=== PATIENT | male | born 1995 | race Caucasian/White ===

== ENCOUNTER 2023-09-10 19:00 | Observation (INO) | payer BC ==
--- OUTSIDE RECORDS SUMMARY | 2023-09-10 19:02 | XMS REPORT | Continuity of Care Document ---
Author Name Unknown Address [address] [facility] [address] th[address] Address [address] [facility] 1 [address] [place] [address] Care Team Providers Care Converting Supervisor Name Role Phone NIRALI ELI Attending Clinician Unavailable Lab, Gilda Fam Harlanb I Attending Clinician Unavailab Nirali Doran Attending Clinician [phone] Doctor Unassigned, [place] Attending Clinician U navailable Allergies, Adverse Reactions, Alerts Allergy Name Allergy Type Status Severity Reaction(s) Onset Date Inactive Date Treating Clinician Comments Source NO KNOWN ALLERGIE S Drug Class Active [facility] Social History Social Habit Start Date Stop Date Quantity Comments Source Sex Assigned At [facility] Exposure to SARS-CoV-2 (event) Not sure [facility] Smoking Status Start Date Stop Date Source Unknown if ever smoked [facility] Encounters Start Date/Time End Date/Time Encounter Type Admission Type Attending Clinicians Care Facility Care Department Encounter ID Source 2020-10-12 11:35:00 2020-10-12 11:35:00 Outpatient R NIRALI ELI [facility] [id number] [facility] 2020-10-12 11:11:30 2020-10-12 11:26:30 Licensed Sales Producer Visit Lab, Adc Fam Pob I Nirali Eli [facility] [id number] [facility] 2020-10-12 00:00:00 2020-10-12 00:00:00 Letter (Out) Doctor Unassigned, [place] [facility] [id number] [facility]
[2023-09-10] MEDS ORDERED: IBUPROFEN 200 MG TAB PO ONE (19:59)
[2023-09-10] MEDS ORDERED: IBUPROFEN 400 MG TAB ONE (19:59)
[2023-09-10 20:04] LABS: Absolute Lymphocytes (CBC) 0.9 K/uL (0.7-4.9); Hematocrit 42.5 % (39.6-49.0); MCV 87.4 fL (80-100); MPV 7.1 fL (7.6-11.3); Platelets 165 thou/uL (152-406); RBC Red Blood Cell Count 4.87 M/uL (4.33-5.43)
[2023-09-10 20:22] LABS: Potassium 3.6 mEq/L (3.5-5.1)
--- NOTE | 2023-09-10 20:24 | RAD REPORT ---
EXAM DESCRIPTION: CT - Soft Tissue Neck W/Contr CLINICAL HISTORY: r/o sloop captain;Sore throat Neck pain and swelling COMPARISON: No comparisons TECHNIQUE All CT scans are performed using dose optimization technique as appropriate and may includ e automated exposure control or mA/KV adjustment according to patient size. FINDINGS: Nasopharyngeal tissues are normal in appearance. Fossa Rosenmller are normal. Parapharyngeal fat triangles are symmetric. There is moderate enlargement of both palatine tonsils, greater on the left. Somewhat amorphous 21 mm left peritonsillar abscess suspected. Bilateral jugular chain lymphadenopathy is seen, slightly grea ter on the left likely reactive. Largest lymph node on the left measures 26 mm. The vocal cords are normal in appearance. Normal thyroid gland. Salivary glands are normal in appearance. Upper lung coles are clear. Included intracranial contents are unremarkable. IMPRESSION: 21 mm left peritonsillar abscess suspected. Moderate enlargement of both palatine tonsils seen, greater on the left. Bilateral presumably reactive jugular chain lymphadenopathy, largest measuring 26 mm on the left.
[2023-09-10] MEDS ORDERED: CLINDAMYCIN 600MG/D5W 50 ML IV ONE (20:51)
[2023-09-10] MEDS ORDERED: dexAMETHasone 10 MG/ML VIAL ONE (20:51)
[2023-09-10] MEDS ORDERED: NA CHLORIDE 0.9% 2,000 ML ONE (20:52)
--- NOTE | 2023-09-10 20:52 | ER ---
Nurse's Notes [facility] Name: Stas Powers Age: 28 yrs Sex: Male : 1995 Arrival Date: 09/10/2023 Time: 19:00 Bed 20 Private MD: Diagnosis: Peritonsillar abscess Presentation: 09/10 19:38 Chief complaint: Patient states: Sore throat and fever since Friday, seen at urgent [facility] care, given abx, had felt somewhat better but pain moved to the left side and patient is able to see pus. Coronavirus screen: Vaccine status: Patient reports being unvaccinated. Ebola Screen: Patient denies travel to an Ebola-affected area in the 21 days before illness onset. Initial Sepsis Screen: Does the patient meet any 2 criteria? HR > 90 bpm. No. Patient's initial sepsis screen is negative. Does the patient have a suspected source of infection? Yes: Other: Throat. Risk Assessment: Do you want to hurt yourself or someone else? Patient reports no desire to harm self or others. Onset of symptoms was September 08, 2023. 19:38 Method Of Arrival: Ambulatory [facility] 19:38 Acuity: KEMAR 3 [facility] Triage Assessment: 19:58 General: Appears in no apparent distress. comfortable, Behavior is calm, cooperative. cm10 Pain: Complains of pain in Throat. EENT: Throat is reddened has patchy exudate has enlarged tonsils Reports pain in Throat. Neuro: No deficits noted. Level of Consciousness is awake, alert, obeys commands, Oriented to person, place, time, situation. Cardiovascular: No deficits noted. Patient's skin is warm and dry. Respiratory: No deficits noted. Airway is patent Respiratory effort is even, unlabored, Respiratory pattern is regular, symmetrical. GI: No deficits noted. Abdomen is flat, Reports vomiting. : No deficits noted. No signs and/or symptoms were reported regarding the genitourinary system. Derm: No deficits noted. No signs and/or symptoms reported regarding the dermatologic system. Skin is intact, Skin is pink, warm \T\ dry. Musculoskeletal: No deficits noted. No signs and/or symptoms reported regarding the musculoskeletal system. Range of motion: intact in all extremities. Historical: - Allergies: 19:40 No Known Allergies; nj1 - PMHx: 19:40 None; nj1 - PSHx: 19:40 None; nj1 - Immunization history:: Client reports having NOT received the Covid vaccine. - Social history:: Smoking status: Patient denies any tobacco usage or history of. Screenin:59 [facility] ED Fall Risk Assessment (Adult) History of falling in the last 3 months, cm10 including since admission No falls in past 3 months (0 pts) Confusion or Disorientation No (0 pts) Intoxicated or Sedated No (0 pts) Impaired Gait No (0 pts) Mobility Assist Device Used No (0 pt) Altered Elimination No (0 pt) Score/Fall Risk Level 0 - 2 = Low Risk Oriented to surroundings, Maintained a safe environment, Hourly rounding (assess needs \T\ fall precautionary measures) done. Abuse screen: Denies threats or abuse. Denies injuries from another. Nutritional screening: No deficits noted. Tuberculosis screening: No symptoms or risk factors identified. Assessment: 21:00 Reassessment: No changes from previously documented assessment. Patient and/or family tl4 updated on plan of care and expected duration. Pain level reassessed. Patient is alert, oriented x 3, equal unlabored respirations, skin warm/dry/pink. GI: Reports nausea, vomiting. Vital Signs: 19:38 BP 155 / 89; Pulse 100; Resp 18; Temp 101.7(O); Pulse Ox 100% ; Weight 86.18 kg; Height nj1 6 ft. 1 in. ; Pain 5/10; 20:30 BP 140 / 83; Pulse 86; Resp 18; Pulse Ox 98% ; Pain 8/10; tl4 21:00 BP 142 / 83; Pulse 88; Resp 16; Pulse Ox 100% ; Pain 8/10; tl4 21:30 BP 137 / 90; Pulse 81; Resp 18; Pulse Ox 98% ; tl4 19:38 Body Mass Index 25.07 (86.18 kg, 185.42 cm) nj1 19:38 Pain Scale: Adult nj1 20:30 Pain Scale: Adult tl4 21:00 Pain Scale: Adult tl4 Dulac Coma Score: 21:00 Eye Response: spontaneous(4). Motor Response: obeys commands(6). Verbal Response: tl4 oriented(5). Total: 15. ED Course: 19:13 Patient arrived in ED. mg5 19:13 Jason, Zahraa, BOGGER OPERATOR-C is PHCP. kb 19:13 Tani Ha MD is Attending Physician. kb 19:40 Triage completed. nj1 19:41 Arm band placed on right wrist. nj1 19:57 Basic Metabolic Panel Sent. cm10 19:57 CBC with Diff Sent. cm10 19:57 Initial lab(s) drawn, by me, sent to lab. Inserted saline lock: 20 gauge in right cm10 antecubital area, using aseptic technique. Blood collected. 19:59 Patient has correct armband on for positive identification. Bed in low position. Call cm10 light in reach. Side rails up X 1. Provided Education on: ER process and procedures. . 20:15 CT Soft Tissue Neck W/contr In Process Unspecified. EDMS 20:51 Emmanuel Nance MD is Hospitalizing Provider. kb 20:53 Mathew Steele is Primary Nurse. tl4 23:00 No provider procedures requiring assistance completed. Patient admitted, IV remains in jw7 place. Administered Medications: 19:46 Drug: Ibuprofen PO 600 mg PO once Route: PO; nj1 21:42 Follow up: Response: No adverse reaction; Pain is unchanged, physician notified tl4 20:53 Drug: Clindamycin IVPB 600 mg IVPB once over 30 mins; (mix in 50 mL) Route: IVPB; tl4 Infused Over: 30 mins; Site: right antecubital; 21:30 Follow up: IV Status: Completed infusion; IV Intake: 50ml tl4 20:53 Drug: NS 0.9% IV 1000 ml IV at 1000 ml once Route: IV; Rate: 1000 ml; Site: right tl4 antecubital; Delivery: Primary tubing; 21:40 Follow up: Response: No adverse reaction; IV Status: Completed infusion; IV Intake: tl4 1000ml 20:54 Drug: Decadron - Dexamethasone IVP 10 mg IVP once Route: IVP; Site: right antecubital; tl4 21:42 Follow up: Response: No adverse reaction tl4 21:36 Drug: fentaNYL (PF) IVP 25 mcg IVP once Route: IVP; Infused Over: 2 mins; Site: right tl4 antecubital; 21:59 Follow up: Response: Pain is decreased tl4 21:41 Drug: NS 0.9% IV 1000 ml IV at 125 ml/hr continuous Route: IV; Rate: 125 ml/hr; Site: tl4 right antecubital; Delivery: Dial-a-flow; 23:01 Follow up: Response: No adverse reaction; IV Status: Infusion continued upon admission; jw7 IV Intake: 200ml Medication: 19:59 VIS not applicable for this client. cm10 Intake: 21:30 IV: 50ml; Total: 50ml. tl4 21:40 IV: 1000ml; Total: 1050ml. tl4 23:01 IV: 200ml; Total: 1250ml. jw7 Outcome: 20:51 Decision to Hospitalize by Provider. kb 23:00 Admitted to ER Hold. [facility] further documentation. jw7 23:00 Condition: stable 23:00 Instructed on the need for admit, Demonstrated understanding of instructions, 09/11 03:33 Patient left the ED. jw7 Signatures: Dispatcher [employer] EDZahraa Garnica FNP-C BOGGER OPERATOR-CkSavanna Giron RN RN jw7 Roshni Degroot RN RN nj1 Lisbeth Garcia RN RN cm10 Prudence Mays 5 Mathew Steele tl4
--- NOTE | 2023-09-10 20:52 | EDPHYS ---
Physician Documentation [facility] Name: Stas Powers Age: 28 yrs Sex: Male : 1995 Arrival Date: 09/10/2023 Time: 19:00 Bed 20 Private MD: ED Physician Tani Ha HPI: 09/10 19:52 This 28 yrs old Male presents to ER via Ambulatory with complaints of Vomiting, Sore kb Throat - PAIN, Fever. 19:52 Patient is a 28-year-old male who presents for sore throat and fever that started 3 kb days ago. States pain in the throat localized to the left side, went to urgent care just prior to arrival and was sent to the ER for evaluation to rule out peritonsillar abscess.. Historical: - Allergies: 19:40 No Known Allergies; nj1 - PMHx: 19:40 None; nj1 - PSHx: 19:40 None; nj1 - Immunization history:: Client reports having NOT received the Covid vaccine. - Social history:: Smoking status: Patient denies any tobacco usage or history of. ROS: 19:51 Respiratory: Negative for shortness of breath, cough, wheezing, and pleuritic chest kb pain, 19:51 Constitutional: Positive for fever, 19:51 ENT: Positive for sore throat, 19:51 All other systems are negative, Exam: 19:51 Constitutional: This is a well developed, well nourished patient who is awake, alert, kb and in no acute distress. Head/Face: Normocephalic, atraumatic. Cardiovascular: Regular rate Respiratory: Respirations even and unlabored. No increased work of breathing. Talking in full sentences Skin: Warm, dry with normal turgor. Normal color. MS/ Extremity: Pulses equal, no cyanosis. Neurovascular intact. Full, normal range of motion. Neuro: Awake and alert, GCS 15, oriented to person, place, time, and situation. Moves all extremities. Normal gait. 19:51 ENT: Posterior pharynx: Airway: normal, Tonsils: enlarged on the left, with erythema, with exudate, swelling, that is mild, erythema, that is moderate, exudate, that is moderate, peritonsillar mass, is noted on left, Vital Signs: 19:38 BP 155 / 89; Pulse 100; Resp 18; Temp 101.7(O); Pulse Ox 100% ; Weight 86.18 kg; Height nj1 6 ft. 1 in. ; Pain 5/10; 20:30 BP 140 / 83; Pulse 86; Resp 18; Pulse Ox 98% ; Pain 8/10; tl4 21:00 BP 142 / 83; Pulse 88; Resp 16; Pulse Ox 100% ; Pain 8/10; tl4 21:30 BP 137 / 90; Pulse 81; Resp 18; Pulse Ox 98% ; tl4 19:38 Body Mass Index 25.07 (86.18 kg, 185.42 cm) nj1 19:38 Pain Scale: Adult nj1 20:30 Pain Scale: Adult tl4 21:00 Pain Scale: Adult tl4 Christopher Coma Score: 21:00 Eye Response: spontaneous(4). Motor Response: obeys commands(6). Verbal Response: tl4 oriented(5). Total: 15. MDM: 19:14 Patient medically screened. kb 19:43 External Records Reviewed: Outpatient labs: covid, flu and strep results from [facility] reviewed and negative. 19:51 Differential diagnosis: strep, bell captain, pharyngitis. Data reviewed: vital signs, nurses kb notes. 20:50 Consideration of Admission/Observation Patient was admitted/placed on observation. kb Escalation of care including admission/observation considered. Management of patient was discussed with the following: Hospitalist: Dr Nance accepts pt for admission. Olive Grader: Dr Tran accepts pt for consult. Will see in AM. Counseling: I had a detailed discussion with the patient and/or guardian regarding the historical points, exam findings, and any diagnostic results supporting the discharge/admit diagnosis, lab results, radiology results, the need for further work-up and treatment in the hospital. 09/10 19:29 Order name: CBC with Diff; Complete Time: 21:07 kb 09/10 19:29 Order name: Basic Metabolic Panel; Complete Time: 20:23 kb 09/10 20:59 Order name: CBC Smear Scan; Complete Time: 21:07 EDMS 09/10 21:04 Order name: Basic Metabolic Panel EDMS 09/10 21:04 Order name: Basic Metabolic Panel EDMS 09/10 21:04 Order name: CBC with Automated Diff EDMS 09/10 21:04 Order name: CBC with Automated Diff EDMS 09/10 19:29 Order name: CT Soft Tissue Neck W/contr; Complete Time: 20:24 kb 09/10 19:29 Order name: IV Start; Complete Time: 19:57 kb Administered Medications: 19:46 Drug: Ibuprofen PO 600 mg PO once Route: PO; nj1 21:42 Follow up: Response: No adverse reaction; Pain is unchanged, physician notified tl4 20:53 Drug: Clindamycin IVPB 600 mg IVPB once over 30 mins; (mix in 50 mL) Route: IVPB; tl4 Infused Over: 30 mins; Site: right antecubital; 21:30 Follow up: IV Status: Completed infusion; IV Intake: 50ml tl4 20:53 Drug: NS 0.9% IV 1000 ml IV at 1000 ml once Route: IV; Rate: 1000 ml; Site: right tl4 antecubital; Delivery: Primary tubing; 21:40 Follow up: Response: No adverse reaction; IV Status: Completed infusion; IV Intake: tl4 1000ml 20:54 Drug: Decadron - Dexamethasone IVP 10 mg IVP once Route: IVP; Site: right antecubital; tl4 21:42 Follow up: Response: No adverse reaction tl4 21:36 Drug: fentaNYL (PF) IVP 25 mcg IVP once Route: IVP; Infused Over: 2 mins; Site: right tl4 antecubital; 21:59 Follow up: Response: Pain is decreased tl4 21:41 Drug: NS 0.9% IV 1000 ml IV at 125 ml/hr continuous Route: IV; Rate: 125 ml/hr; Site: tl4 right antecubital; Delivery: Dial-a-flow; 23:01 Follow up: Response: No adverse reaction; IV Status: Infusion continued upon admission; jw7 IV Intake: 200ml Disposition Summary: 09/10/23 20:51 Hospitalization Ordered Notes: Hospitalization Status: Observation kb Provider: Emmanuel Nance Location: Telemetry/MedSurg (observation) kb Condition: Stable kb Problem: new kb Symptoms: are unchanged kb Bed/Room Type: Standard Room Assignment: 404(09/11/23 02:58) jr12 Diagnosis - Peritonsillar abscess kb Forms: - Medication Reconciliation Form kb - SBAR form kb - Leadership Thank You Letter kb Signatures: Dispatcher [employer] Zahraa Gonsalez, GROUND EQUIPMENT MECHANIC-C GROUND EQUIPMENT MECHANIC-CkRoshni Singh RN RN nj1 France Bowden jr12 Mathew Steele4 Savanna Murphy RN jw7 Corrections: (The following items were deleted from the chart) 09/11 02:58 09/10 20:51 kb jr12
[2023-09-10] MEDS ORDERED: ONDANSETRON 4 MG/2 ML VIAL IV PRN (20:58)
[2023-09-10 20:59] LABS: Blood Morphology Comment NOT SEEN (NOT SEEN); Platelet Estimate ADEQ; White Blood Cell Scan OK (OK)
[2023-09-10] MEDS ORDERED: NA CHLORIDE 0.9% 1,000 ML IV SCH (21:00)
--- NOTE | 2023-09-10 21:03 | P.HP ---
Certification for Inpatient Patient admitted to: Observation With expected LOS: <2 Midnights Practitioner: I am a practitioner with admitting privileges, knowledge of patient current condition, hospital course, and medical plan of care. Services: Services provided to patient in accordance with Admission requirements found in Title 42 Section 412.3 of the Code of Federal Regulations Patient History Date of Service: 09/11/23 Reason for admission: Peritonsillar abscess, tonsillitis. History of Present Illness: 28-year-old male patient who was evaluated for episode of left neck pain and concerning for worsening tonsillitis. He had gone to urgent care center and was evaluated for tonsillitis. He had pink in the tonsillar area for the past 3 days with associated nausea, lethargy and fever. In the ED he had a CT of the neck done that showed a 21 mm left peritonsillar abscess and significantly enlarged lymphadenopathy in the neck. She was started on IV antibiotic therapy and was admitted for inpatient care. ENT surgeon was consulted for management recommendation. Allergies No Known Allergies Allergy (Unverified 09/10/23 22:59) Home Medications: NK [No Home Meds] 09/11/23 Review of Systems General: Fever, Chills, Malaise Eyes: Unremarkable ENT: Throat Pain Respiratory: Unremarkable Cardiovascular: Unremarkable Gastrointestinal: Unremarkable Genitourinary: Unremarkable Musculoskeletal: Unremarkable Integumentary: Unremarkable Neurological: Unremarkable Physical Examination - Physical Exam General: Alert, Oriented x3 HEENT: Atraumatic Neck: Supple Respiratory: Normal air movement Cardiovascular: Regular rate/rhythm, Normal S1 S2 Gastrointestinal: Soft and benign Musculoskeletal: No swelling - Studies Laboratory Data (last 24 hrs) 09/10/23 09/10/23 19:56 19:56 WBC 15.70 H Hgb 14.5 Hct 42.5 Plt Count 165 Sodium 134 L Potassium 3.6 BUN 10 Creatinine 1.39 H Glucose 132 H Assessment and Plan - Plan Tonsillitis with peritonsillar abscess: Patient has CT finding of peritonsillar abscess on the left with significant lymphadenopathy. White cell is elevated at 15,000. Will continue empiric antibiotic therapy with Unasyn pending surgeon evaluation. ENT surgeon consulted for abscess management. Will continue pain control. Prophylaxis: Lovenox for DVT prophylaxis CODE STATUS: Full code Disposition: We will treat his tonsillitis with abscess and will be discharged once he is cleared by ENT surgeon. - Advance Directives Does patient have a Living Will: No Does patient have a Durable POA for Healthcare: No
[2023-09-10] MEDS ORDERED: FENTANYL CITR 100 MCG/2 ML ONE (21:43)
[2023-09-11 00:35] VITALS: BMI 24.9
[2023-09-11] MEDS ORDERED: CLINDAMYCIN INJ 600 MG in NA CHLORIDE 0.9% 50 ML IV SCH (01:00)
[2023-09-11] MEDS ORDERED: NA CHLORIDE 0.9% 1,000 ML ONE (01:14)
[2023-09-11] MEDS ORDERED: CLINDAMYCIN 600MG/D5W 50 ML IV ONE (01:14)
[2023-09-11 07:02] VITALS: O2SAT 98
[2023-09-11 07:06] LABS: Absolute Lymphocytes (CBC) 0.5 K/uL (0.7-4.9); Hematocrit 41.3 % (39.6-49.0); Lymphocytes % 4.3 % (15.3-44.8); MCV 88.1 fL (80-100); MPV 7.5 fL (7.6-11.3); Platelets 184 thou/uL (152-406); RBC Red Blood Cell Count 4.68 M/uL (4.33-5.43)
--- NOTE | 2023-09-11 07:45 | P.CNS ---
Date of Consult: 09/11/23 Reason for Consult: Tonsillar abscess Requesting Physician: Tani Ha Chief Complaint: Peritonsillar abscess, tonsillitis. History of Present Illness: Reports he developed a sore throat which was initially worse on the right side on Friday. He was having associated fevers and was at an urgent care and prescribed azithromycin. He subsequently developed severe left-sided throat pain bite antibiotics and continued to have fevers and significant malaise. He elected to present to the emergency room. Denied any development of ear pain. He underwent a CT scan which was suggestive of a left-sided 2 cm peritonsillar abscess. Due to failed outpatient therapy recommendation was made via telephone for admission for IV antibiotics and hydration. The emergency room reported to the on-call ENT that there was no significant concern for stridor, or airway obstruction. This morning, the patient feels significantly better in regards to his sore throat and swallowing ability. Does not have a history of chronic or recurrent tonsillitis. He recalls 1 episode of strep throat which was approximately 6 years ago. He has never had any previous peritonsillar abscess. Allergies No Known Allergies Allergy (Unverified 09/10/23 22:59) Home Medications: NK [No Home Meds] 09/11/23 - Past Medical/Surgical History Past Medical History: Patient denies medical history Past Surgical History: Patient denies surgical history - Social History Smoking Status: Never smoker Place of Residence: Home Physical Examination Temp Pulse Resp BP Pulse Ox 96.9 F 65 18 135/65 99 09/11/23 04:00 09/11/23 04:00 09/11/23 04:00 09/11/23 04:00 09/11/23 04:00 General: Alert, In no apparent distress, Oriented x3 HEENT: Atraumatic, Normocephalic, PERRLA, Mucous membr. moist/pink, Other (No trismus. Soft palate appears flat and not significantly deviated. Uvula midline and not significantly swollen. There does appear to be some eschar on the medial surface of the left tonsil there is no clinically visible abscess which would require drainage) Neck: Supple Respiratory: Other (Quiet normal respiration) Neurological: Normal speech (No hot potato voice) Laboratory Data (last 24 hrs) 09/10/23 09/10/23 19:56 19:56 WBC 15.70 H Hgb 14.5 Hct 42.5 Plt Count 165 Sodium 134 L Potassium 3.6 BUN 10 Creatinine 1.39 H Glucose 132 H - Problems (1) Peritonsillar abscess Current Visit: Yes Status: Acute Conclusions/Impression: The patient is clinically much improved today. The patient can be started on an oral trial of fluids and diet as tolerated. I recommend discharge home with oral prescription for clindamycin for 7 days. Since the patient has no prior history of peritonsillar abscess and no significant history of chronic or recurrent tonsillitis, elective tonsillectomy is not indicated at this time. The patient is given my a card and can contact Dr. Tran at [facility] on an as-needed basis if symptoms should recur over the next days, weeks or months.
[2023-09-11] MEDS ORDERED: CLINDAMYCIN 600MG/D5W 50 ML IV SCH (09:00)
[2023-09-11] MEDS ORDERED: ENOXAPARIN 40 MG/0.4 ML SQ SCH (09:00)
[2023-09-11 10:07] VITALS: BP 123/86; TEMP 97.8
--- NOTE | 2023-09-11 10:29 | P.DS ---
Admission Date: 09/10/23 Discharge Date: 09/11/23 Disposition: ROUTINE DISCHARGE Discharge Condition: FAIR Reason for Admission: Peritonsillar abscess, tonsillitis. - Problems (1) Peritonsillar abscess Current Visit: Yes Status: Acute (2) Sepsis Current Visit: Yes Status: Acute Brief History of Present Illness: 28-year-old male patient who was evaluated for episode of left neck pain concerning for worsening tonsillitis. He had gone to urgent care center and was evaluated for tonsillitis. He reported 3 days of sore throat associated with nausea, lethargy and fever. In the ED, CT of the neck done that showed a 21 mm left peritonsillar abscess and significantly enlarged lymphadenopathy in the neck. He was started on IV antibiotic therapy and was admitted for inpatient care. Hospital Course: Patient was hospitalized and treated with IV clindamycin. He received a dose of dexamethasone in the ED patient seen and evaluated by ENT Dr. Tran. Patient reports symptoms noted to have significantly improved. He tolerated diet, vitals were stable and pain well-controlled. Patient is deemed clinically stable for discharge. He was discharged with oral clindamycin, analgesics and a few doses of prednisone. Vital Signs/Physical Exam: Temp Pulse Resp BP Pulse Ox 97.8 F 75 18 123/86 99 09/11/23 08:00 09/11/23 08:00 09/11/23 08:00 09/11/23 08:00 09/11/23 08:00 General: Alert, In no apparent distress, Oriented x3 HEENT: Mucous membr. moist/pink Neck: Supple, JVD not distended Respiratory: Clear to auscultation bilaterally, Normal air movement Cardiovascular: No edema, Regular rate/rhythm, Normal S1 S2 Gastrointestinal: Normal bowel sounds, Soft and benign, Non-distended, No tenderness Musculoskeletal: No swelling Integumentary: No rashes, No cyanosis Neurological: Normal strength at 5/5 x4 extr Laboratory Data at Discharge: WBC 12.30 thou/uL (4.3-10.9) H 09/11/23 06:30 Hgb 14.1 g/dL (13.6-17.9) 09/11/23 06:30 Hct 41.3 % (39.6-49.0) 09/11/23 06:30 Plt Count 184 thou/uL (152-406) 09/11/23 06:30 Sodium 138 mEq/L (136-145) 09/11/23 06:30 Potassium 5.0 mEq/L (3.5-5.1) D 09/11/23 06:30 BUN 9 mg/dL (7-18) 09/11/23 06:30 Creatinine 1.09 mg/dL (0.70-1.30) 09/11/23 06:30 Glucose 162 mg/dL (74-106) H 09/11/23 06:30 Home Medications: Hydrocodone/APAP Soln [Lortab Solution] 10 ml PO QID PRN #473 ml 09/11/23 Ibuprofen 400 mg PO TID #30 tab 09/11/23 clindamycin HCL [Clindamycin HCl] 300 mg PO QID #28 cap 09/11/23 predniSONE [Deltasone] 20 mg PO DAILY #5 tab 09/11/23 New Medications: clindamycin HCL [Clindamycin HCl] 300 mg PO QID #28 cap Ibuprofen 400 mg PO TID #30 tab Hydrocodone/APAP Soln [Lortab Solution] 10 ml PO QID PRN #473 ml PRN Reason: Pain predniSONE [Deltasone] 20 mg PO DAILY #5 tab Followup: Byron Mena MD [Primary Care Provider] - Time spent managing pt's care (in minutes): 26
== END 2023-09-11 13:09 | disposition home or self-care (01) ==
LOC: ER 19:00 → ERHOLD 20:58 → 4TH 09-11 03:02
PROVIDERS: ADMIT Internal Medicine Nephrology; ATTEND Internal Medicine
DX: J36 Peritonsillar abscess (principal); A41.9 Sepsis, unspecified organism; R59.0 Localized enlarged lymph nodes
CPT/HCPCS: 96365; 96361; 85025 ×2; 80048 ×2; 36415; 70491; 96375; 99285; Q9967; J3010; J1100; J7030 ×2; G0378; J1650